=== PATIENT | female | born 1950 | race Hispanic/Latino ===

== ENCOUNTER 2019-08-17 11:21 | Day surgery (SDC) | payer MEDICARE ==
[~2019-08-17 11:21] MED LIST: IOPIDINE ONE; MYDRIACYL ONE; NEOFRIN ONE
[2019-08-17] MEDS ORDERED: IOPIDINE OD ONE (11:41)
[2019-08-17] MEDS ORDERED: NEOFRIN OD ONE (11:41)
[2019-08-17] MEDS ORDERED: MYDRIACYL OD ONE (11:41)
[2019-08-17 14:36] VITALS: BP 140/68
== END 2019-08-17 11:22 | disposition home or self-care (01) ==
LOC: OR 11:21
PROVIDERS: ATTEND Specialist
DX: E11.36 Type 2 diabetes mellitus with diabetic cataract (principal); H26.491 Other secondary cataract, right eye; G43.909 Migraine, unspecified, not intractable, without status migrainosus; E78.00 Pure hypercholesterolemia, unspecified; I10 Essential (primary) hypertension; M19.90 Unspecified osteoarthritis, unspecified site; F41.9 Anxiety disorder, unspecified; Z79.82 Long term (current) use of aspirin; Z87.891 Personal history of nicotine dependence; Z98.41 Cataract extraction status, right eye; Z98.42 Cataract extraction status, left eye; Z98.890 Other specified postprocedural states; Z98.891 History of uterine scar from previous surgery; Z85.89 Personal history of malignant neoplasm of other organs and systems; Z86.2 Personal history of diseases of the blood and blood-forming organs and certain disorders involving the immune mechanism; Z88.8 Allergy status to other drugs, medicaments and biological substances